=== PATIENT | male | born 1990 | race American Indian/Alaskan Native ===

== ENCOUNTER 2016-04-07 13:10 | Emergency (ER) | payer SELFPAY ==
[2016-04-07 13:54] VITALS: BP 120/75
--- NOTE | 2016-04-08 12:19 | ED Elopement Review ---
ED Pt Elopement review - Call Back decision Pt Call Back Decision: No action required
== END 2016-04-07 22:45 | disposition left against medical advice (07) ==
LOC: ED 13:10
DX: R10.9 Unspecified abdominal pain (principal); R11.2 Nausea with vomiting, unspecified; Z53.21 Procedure and treatment not carried out due to patient leaving prior to being seen by health care provider

== ENCOUNTER 2016-04-08 15:02 | Emergency (ER) | payer SELFPAY ==
--- NOTE | 2016-04-08 17:24 | Emergency Department Report ---
Chief Complaint: Nausea/Vomiting/Diarrhea Stated Complaint: VOMITTING BLOOD Time Seen by Provider: 04/08/16 17:15 - HPI History of Present Illness: 25-year-old male comes in for complaint of vomiting with streaks of blood. This started last night. Patient also complains of dysuria with incomplete of bladder drainage several years. He reports that he is driven from his penis after he urinates. Patient reports nausea no fever no chills - Exam Vital Signs: Vital Signs 04/08/16 15:13 Temperature 98.8 F Pulse Rate 79 Respiratory 18 Rate Blood Pressure 129/71 O2 Sat by Pulse 100 Oximetry Physical Exam: Is alert and oriented 3 no acute distress no pelvic tenderness cardiac regular rate and rhythm respiratory clear to auscultation MSE screening note: Focused history and physical exam performed. Due to findings the following was ordered: CBC BMP urinalysis ordered patient be evaluated the main ER ED Disposition for MSE Condition: Stable
[2016-04-08 18:01] LABS: Hematocrit 44.6 % (35.5-45.6); Hemoglobin 14.7 gm/dl (11.8-15.2); Mean Corpuscular HGB Conc 33 % (32-34); Mean Corpuscular Hemoglobin 32 pg (28-32); Mean Corpuscular Volume 98 fl (84-94); Platelet Count 219 K/mm3 (140-440); Red Blood Count 4.58 M/mm3 (3.65-5.03); Red Cell Distribution Width 13.1 % (13.2-15.2)
[2016-04-08 18:18] LABS: BUN/Creatinine Ratio 14.44; Blood Urea Nitrogen 13 mg/dL (9-20); Calcium 9.3 mg/dL (8.4-10.2); Carbon Dioxide 28 mmol/L (22-30); Chloride 103.7 mmol/L (98-107); Glucose 88 mg/dL (75-100); Potassium 4.6 mmol/L (3.6-5.0); Sodium 143 mmol/L (137-145)
[2016-04-08 18:26] LABS: Anion Gap 16 mmol/L
[2016-04-08 19:05] LABS: Bilirubin,Urine NEG (Negative); Blood,Urine NEG (Negative); Ketones,Urine NEG (Negative); Leukocyte Esterase,Urine NEG (Negative); Mucus,Urine 1+ /HPF; Nitrite,Urine NEG (Negative); Protein,Urine <15 mg/dL mg/dL (Negative); Urobilinogen,Urine < 2.0 mg/dL (<2.0)
[2016-04-08] MEDS ORDERED: ZOFRAN IV ONE (23:07)
[2016-04-08] MEDS ORDERED: MORPHINE IV ONE (23:07)
[2016-04-08] MEDS ORDERED: PEPCID IV ONE (23:08)
--- NOTE | 2016-04-08 23:20 | Emergency Department Report ---
HPI - General Chief Complaint: Nausea/Vomiting/Diarrhea Time Seen by Provider: 04/08/16 17:15 - HPI HPI: Room 7 The patient is a 25-year-old male presenting with a chief complaint of nausea vomiting and difficulty voiding. The patient states he's had difficulty urinating for several years. The patient states when he voids does not feel on all the urine comes out. The patient states he has never sought medical attention for this complaint. Patient states over the past 2-3 weeks it feels as though the symptoms has worsened. Patient currently denies feeling as though there is urine in his bladder. Patient denies penile discharge or dysuria. The patient states since yesterday he has had nausea and vomiting with small amount of blood present. Patient denies abdominal pain states she's felt nauseous for 1 week. Patient denies hematochezia or melena. Patient denies any history of fever. Location: Gastrointestinal system, genitourinary system Duration: [see above] Quality: Nausea Severity: Moderate Modifying factors: [see above] Context: [see above] Mode of transportation: [not driving] ED Past Medical Hx - Past Medical History Previous Medical History?: No - Surgical History Past Surgical History?: No - Family History Family history: no significant - Social History Smoking Status: Never Smoker Substance Use Type: None - Medications Home Medications: Home Medications Medication Instructions Recorded Confirmed Last Taken Type Promethazine [Phenergan TAB] 25 mg PO Q6HR PRN #20 tab 04/09/16 Unknown Rx Promethazine [Phenergan] 25 mg MT Q6HR PRN #5 supp.rect 04/09/16 Unknown Rx traMADol [Ultram] 50 mg PO Q6HR PRN #14 tablet 04/09/16 Unknown Rx ED Review of Systems ROS: Stated complaint: VOMITTING BLOOD Other details as noted in HPI Comment: All other systems reviewed and negative Constitutional: denies: chills, fever Eyes: denies: eye pain, eye discharge, vision change ENT: denies: ear pain, throat pain Respiratory: denies: cough, shortness of breath, wheezing Cardiovascular: denies: chest pain, palpitations Endocrine: no symptoms reported Gastrointestinal: abdominal pain, nausea, vomiting, hematemesis Genitourinary: denies: dysuria, hematuria, discharge Musculoskeletal: denies: back pain, joint swelling, arthralgia Skin: denies: rash, lesions Neurological: denies: headache, weakness, paresthesias Psychiatric: denies: anxiety, depression Hematological/Lymphatic: denies: easy bleeding, easy bruising Physical Exam - Physical Exam Vital Signs: Vital Signs 04/08/16 04/08/16 15:13 19:45 Temperature 98.8 F 98.6 F Pulse Rate 79 71 Respiratory 18 16 Rate Blood Pressure 129/71 Blood Pressure 126/78 [Left] O2 Sat by Pulse 100 100 Oximetry Physical Exam: GENERAL: The patient is well-developed well-nourished male lying on stretcher not appearing to be in acute distress. [] HEENT: Normocephalic. Atraumatic. Extraocular motions are intact. Patient has moist mucous membranes. NECK: Supple. Trachea midline CHEST/LUNGS: Clear to auscultation. There is no respiratory distress noted. HEART/CARDIOVASCULAR: Regular. There is no tachycardia. There is no gallop rub or murmur. ABDOMEN: Abdomen is soft, discomfort to palpation in epigastric, left upper quadrant and left lower quadrant. There is no suprapubic fullness. Patient has normal bowel sounds. There is no abdominal distention. SKIN: There is no rash. There is no edema. There is no diaphoresis. NEURO: The patient is awake, alert, and oriented. The patient is cooperative. The patient has normal speech MUSCULOSKELETAL: There is no evidence of acute injury. ED Course Vital Signs 04/08/16 04/08/16 15:13 19:45 Temperature 98.8 F 98.6 F Pulse Rate 79 71 Respiratory 18 16 Rate Blood Pressure 129/71 Blood Pressure 126/78 [Left] O2 Sat by Pulse 100 100 Oximetry ED Medical Decision Making - Lab Data Result diagrams: 04/08/16 17:33 04/08/16 17:33 Laboratory Tests 04/08/16 04/08/16 04/08/16 17:33 17:33 17:59 WBC 5.0 RBC 4.58 Hgb 14.7 Hct 44.6 MCV 98 H MCH 32 MCHC 33 RDW 13.1 L Plt Count 219 Sodium 143 Potassium 4.6 Chloride 103.7 Carbon Dioxide 28 Anion Gap 16 BUN 13 Creatinine 0.9 Estimated GFR > 60 BUN/Creatinine Ratio 14.44 Glucose 88 Calcium 9.3 Urine Color Yellow Urine Turbidity Clear Urine pH 5.0 Ur Specific Girard 1.025 Urine Protein <15 mg/dl Urine Glucose (UA) Neg Urine Ketones Neg Urine Blood Neg Urine Nitrite Neg Urine Bilirubin Neg Urine Urobilinogen < 2.0 Ur Leukocyte Esterase Neg Urine WBC (Auto) 1.0 Urine RBC (Auto) 1.0 U Epithel Cells (Auto) < 1.0 Urine Mucus 1+ - Radiology Data Radiology results: report reviewed (CT abdomen and pelvis), image reviewed (CT abdomen and pelvis) CT abdomen and pelvis (read by radiologist)-mild small bowel ileus is identified as described. No obstruction is seen. The appendix is normal. Slight distention of the urinary bladder. - Medical Decision Making I explained to the patient and visitor at bedside the importance of prompt follow-up with a urologist to discern the etiology of his urinary retention. I explained to them the possibility of increased morbidity and/or mortality should they not follow-up and his etiology goes undiagnosed. Patient verbalized understanding. - Differential Diagnosis prostatitis, BPH, bladder mass, gastritis, GERD Critical care attestation.: If time is entered above; I have spent that time in minutes in the direct care of this critically ill patient, excluding procedure time. ED Disposition Clinical Impression: Nausea & vomiting, Difficulty urinating, Urinary retention, Ileus Disposition: DISCHARGED TO HOME OR SELFCARE Is pt being admited?: No Does the pt Need Aspirin: No Condition: Stable Instructions: Urinary Retention in Men (ED), Benign Prostatic Hypertrophy (ED) , Prostate Cancer (GEN) Additional Instructions: Return to the emergency department immediately should you develop worsening symptoms, fever, inability to tolerate food or liquid or any other concerns. Prescriptions: Promethazine [Phenergan TAB] 25 mg PO Q6HR PRN #20 tab PRN Reason: Nausea Promethazine [Phenergan] 25 mg MT Q6HR PRN #5 supp.rect PRN Reason: Vomiting traMADol [Ultram] 50 mg PO Q6HR PRN #14 tablet PRN Reason: Pain Referrals: PRIMARY CARE, [Primary Care Provider] - 3-5 Days GILLES WOLF MD [Staff Physician] - [facility] (Dr. Wolf is a urologist. It is extremely important that you follow up with him as soon as possible for further evaluation of your urinary retention.) Time of Disposition: 00:28
[2016-04-08] MEDS ORDERED: NACL ONE (23:24)
--- NOTE | 2016-04-09 00:09 | Cat Scan Report ---
FINAL REPORT PROCEDURE: CT ABDOMEN PELVIS W CON TECHNIQUE: Computerized axial tomography of the abdomen and pelvis was performed after the IV injection of iodinated nonionic contrast. HISTORY: Lt Abd pain, hematemesis, incomplete voiding COMPARISON: No prior studies are available for comparison. FINDINGS: Visualized lower thorax: No significant abnormality. Liver: Normal size and attenuation. Spleen: Normal size and attenuation. Gallbladder and biliary system: Normal. Pancreas: Normal. Adrenals: Normal. Kidneys: Normal. GI tract: Stomach is normal. No evidence of intestinal obstruction. There are few loops of slightly dilated fluid-filled small bowel in the lower abdomen, ileus is suspected. The cecum, appendix and colon are normal.. Lymph nodes and mesentery: Normal. Vasculature: Normal. Bladder: The urinary bladder is slightly distended.. Reproductive organs: Normal. Peritoneum: No free fluid. Musculoskeletal structures: No significant abnormality. Other: None. IMPRESSION: Mild small bowel ileus is identified as described. No obstruction is seen. The appendix is normal. Slight distention of the urinary bladder.
[2016-04-09] MEDS ORDERED: REGLAN IV ONE (00:37)
[2016-04-09 02:51] VITALS: BP 110/58
== END 2016-04-09 01:13 | disposition home or self-care (01) ==
LOC: ED 15:02
DX: R11.2 Nausea with vomiting, unspecified (principal); R33.9 Retention of urine, unspecified; K56.7 Ileus, unspecified
CPT/HCPCS: 36415; 74177; 80048; 81001; 85027; 96374; 96375; 99284; J2270; J2405; J2765; Q9967

== ENCOUNTER 2019-05-31 11:07 | Emergency (ER) | payer OTHER ==
[2019-05-31] MEDS ORDERED: LORazepam 2 MG/ML VIAL IV ONE (11:56)
--- NOTE | 2019-05-31 12:06 | Emergency Department Report ---
<LEONOR HERNANDEZ - Last Filed: 05/31/19 17:31> ED Altered Mental Status HPI - General Chief Complaint: Altered Mental Status Stated Complaint: DRUG INTOXICATION Time Seen by Provider: 05/31/19 11:49 Source: patient, EMS Mode of arrival: Stretcher Limitations: Altered Mental Status - History of Present Illness Initial Comments: Patient is 28 years old male with no significant past medical history except for drug abuse. Patient brought to the emergency room via EMS for evaluation of altered mental status. EMS stated that patient found unresponsive with a Bethanie. They admitted that they has been using some drugs but somebody gave it to them. Patient given Narcan by EMS and immediately start working up. In the emergency room patient is crying and paranoid and stating that we are trying to kill him. Patient is very agitated. Patient given Ativan 2 mg IV for sedation. Patient is unable to answer any question at this moment. MD Complaint: altered mental status, intoxication -: This morning Severity: moderate Context: drug abuse Treatments Prior to Arrival: IV fluid - Related Data Previous Rx's Medication Instructions Recorded Last Taken Type Promethazine [Phenergan TAB] 25 mg PO Q6HR PRN #20 tab 04/09/16 Unknown Rx Promethazine [Phenergan] 25 mg HI Q6HR PRN #5 supp.rect 04/09/16 Unknown Rx Naloxone HCl [Narcan Nasal Petal] 4 mg NS Q1HR PRN #5 spray 05/31/19 Unknown Rx Potassium Chloride 20 meq PO BID #30 packet 05/31/19 Unknown Rx Allergies Allergy/AdvReac Type Severity Reaction Status Date / Time No Known Allergies Allergy Unverified 04/07/16 13:51 ED Review of Systems Comment: Unobtainable due to pts medical conditions ED Past Medical Hx - Past Medical History Previous Medical History?: No - Surgical History Past Surgical History?: No - Social History Smoking Status: Never Smoker - Medications Home Medications: Home Medications Medication Instructions Recorded Confirmed Last Taken Type Promethazine [Phenergan TAB] 25 mg PO Q6HR PRN #20 tab 04/09/16 Unknown Rx Promethazine [Phenergan] 25 mg HI Q6HR PRN #5 supp.rect 04/09/16 Unknown Rx Naloxone HCl [Narcan Nasal Petal] 4 mg NS Q1HR PRN #5 spray 03/05/20 Unknown Rx Potassium Chloride 20 meq PO BID #30 packet 05/31/19 Unknown Rx ED Physical Exam - General Limitations: Altered Mental Status General appearance: alert, appears intoxicated, anxious, other (agitated) - Head Head exam: Present: atraumatic, normal inspection - Eye Eye exam: Present: normal appearance, PERRL - ENT ENT exam: Present: normal exam, normal orophraynx, mucous membranes moist - Neck Neck exam: Present: normal inspection, full ROM. Absent: tenderness, meningismus - Respiratory Respiratory exam: Present: normal lung sounds bilaterally - Cardiovascular Cardiovascular Exam: Present: regular rate, normal rhythm, normal heart sounds - GI/Abdominal GI/Abdominal exam: Present: soft, normal bowel sounds. Absent: distended, tenderness, guarding, rebound, rigid, organomegaly, mass, bruit, pulsatile mass, hernia - Extremities Exam Extremities exam: Present: normal inspection, full ROM, normal capillary refill. Absent: pedal edema, calf tenderness - Back Exam Back exam: Present: normal inspection, full ROM. Absent: CVA tenderness (R), CVA tenderness (L) - Neurological Exam Neurological exam: Present: alert, oriented X3, CN II-XII intact, normal gait, reflexes normal. Absent: motor sensory deficit - Psychiatric Psychiatric exam: Present: normal mood - Skin Skin exam: Present: warm, intact, normal color - Lab Data Result diagrams: 05/31/19 12:12 05/31/19 12:12 - Medical Decision Making Patient is 28 years old male with no significant past medical history except for drug abuse. Patient brought to the emergency room via EMS for evaluation of altered mental status. EMS stated that patient found unresponsive with a Bethanie. They admitted that they has been using some drugs but somebody gave it to them. Patient given Narcan by EMS and immediately start working up. In the emergency room patient is crying and paranoid and stating that we are trying to kill him. Patient is very agitated. Patient given Ativan 2 mg IV for sedation. Patient is unable to answer any question at this moment. Labs reviewed and is unremarkable except for positive UDS for cocaine and methamphetamine. Patient still sedated. Psychiatric team has been consulted for possible inpatient rehab. Patient has been evaluated by me multiple times. Patient remain with stable vital signs. Waiting for psychiatric team reassessment and disposition. ED Disposition Clinical Impression: Polysubstance abuse, Hypokalemia Disposition: DC-01 TO HOME OR SELFCARE Condition: Stable Additional Instructions: Please avoid consumption of recreational drugs. Long-term complications of recreational drug consumption include , disability, paralysis, loss of qual ity of life, and addiction. Take the potassium supplementation as directed, use the Narcan spray for altered mental status, respiratory distress, confusion. If any of these symptoms develop, contact emergency medical services right away. Follow-up with your primary care doctor within the next 2 weeks. Laboratory studies demonstrated nonemergent incidental abnormalities which should be followed up by a primary care doctor. Please have your primary care doctor contact medical records department to obtain these laboratory studies and follow them up. In addition, cultures were sent today of the urine, and results will be available within the next 5 to 7 days. Have a primary care doctor contact the medical records department to obtain culture results. Return to the ER right away with new, worsened or different symptoms, or symptoms not present on the initial emergency room evaluation Referrals: [facility] [Provider Group] - 3-5 Days [facility] [Provider Group] - 3-5 Days <LIN DANIEL - Last Filed: 05/31/19 20:10> ED Review of Systems ROS: Stated complaint: DRUG INTOXICATION Other details as noted in HPI ED Course Vital Signs 05/31/19 05/31/19 05/31/19 11:24 12:34 12:46 Temperature 98.8 F Pulse Rate 80 Respiratory 16 Rate Blood Pressure 134/90 142/94 142/94 O2 Sat by Pulse 98 92 96 Oximetry 05/31/19 05/31/19 05/31/19 14:20 14:30 14:46 Temperature Pulse Rate Respiratory Rate Blood Pressure 108/70 109/79 119/68 O2 Sat by Pulse 100 100 100 Oximetry 05/31/19 05/31/19 05/31/19 15:00 15:09 15:16 Temperature Pulse Rate Respiratory 18 Rate Blood Pressure 113/65 109/65 O2 Sat by Pulse 99 100 100 Oximetry 05/31/19 05/31/19 05/31/19 15:30 15:45 16:00 Temperature Pulse Rate Respiratory Rate Blood Pressure 103/74 107/61 107/61 O2 Sat by Pulse 100 100 100 Oximetry 05/31/19 05/31/19 05/31/19 16:15 16:30 16:45 Temperature Pulse Rate Respiratory Rate Blood Pressure 108/67 108/67 115/72 O2 Sat by Pulse 99 99 100 Oximetry 05/31/19 05/31/19 05/31/19 17:00 17:15 17:30 Temperature Pulse Rate 59 L 70 75 Respiratory 14 16 16 Rate Blood Pressure 124/68 108/64 107/65 O2 Sat by Pulse 100 99 99 Oximetry 05/31/19 05/31/19 05/31/19 17:45 18:00 18:15 Temperature Pulse Rate 70 73 66 Respiratory 13 16 14 Rate Blood Pressure 107/64 107/68 111/71 O2 Sat by Pulse 99 99 100 Oximetry 05/31/19 05/31/19 05/31/19 18:30 18:45 19:00 Temperature Pulse Rate 95 H 71 70 Respiratory 13 13 17 Rate Blood Pressure 111/81 117/75 110/64 O2 Sat by Pulse 98 100 99 Oximetry - Reevaluation(s) Reevaluation #1: 05/31/19 20:05 Patient currently awake, alert, oriented, and clinically sober. He denies phy sical pain at this time. He was seen in conjunction with the psychiatric team. He has been in this department for hours without clinical decompensation. He was given outpatient resources by the psychiatric team. He will be discharged with Narcan, and potassium supplementation. He denies urinary symptoms. He can follow-up with a primary care doctor for this. Vital Signs 05/31/19 05/31/19 05/31/19 11:24 12:34 12:46 Temperature 98.8 F Pulse Rate 80 Respiratory 16 Rate Blood Pressure 134/90 142/94 142/94 O2 Sat by Pulse 98 92 96 Oximetry 05/31/19 05/31/19 05/31/19 14:20 14:30 14:46 Temperature Pulse Rate Respiratory Rate Blood Pressure 108/70 109/79 119/68 O2 Sat by Pulse 100 100 100 Oximetry 05/31/19 05/31/19 05/31/19 15:00 15:09 15:16 Temperature Pulse Rate Respiratory 18 Rate Blood Pressure 113/65 109/65 O2 Sat by Pulse 99 100 100 Oximetry 05/31/19 05/31/19 05/31/19 15:30 15:45 16:00 Temperature Pulse Rate Respiratory Rate Blood Pressure 103/74 107/61 107/61 O2 Sat by Pulse 100 100 100 Oximetry 05/31/19 05/31/19 05/31/19 16:15 16:30 16:45 Temperature Pulse Rate Respiratory Rate Blood Pressure 108/67 108/67 115/72 O2 Sat by Pulse 99 99 100 Oximetry 05/31/19 05/31/19 05/31/19 17:00 17:15 17:30 Temperature Pulse Rate 59 L 70 75 Respiratory 14 16 16 Rate Blood Pressure 124/68 108/64 107/65 O2 Sat by Pulse 100 99 99 Oximetry 05/31/19 05/31/19 05/31/19 17:45 18:00 18:15 Temperature Pulse Rate 70 73 66 Respiratory 13 16 14 Rate Blood Pressure 107/64 107/68 111/71 O2 Sat by Pulse 99 99 100 Oximetry 05/31/19 05/31/19 05/31/19 18:30 18:45 19:00 Temperature Pulse Rate 95 H 71 70 Respiratory 13 13 17 Rate Blood Pressure 111/81 117/75 110/64 O2 Sat by Pulse 98 100 99 Oximetry Lab Results 05/31/19 05/31/19 05/31/19 Range/Units 12:12 12:12 12:12 WBC (4.5-11.0) K/mm3 RBC (3.65-5.03) M/mm3 Hgb (11.8-15.2) gm/dl Hct (35.5-45.6) % MCV (84-94) fl MCH (28-32) pg MCHC (32-34) % RDW (13.2-15.2) % Plt Count (140-440) K/mm3 Lymph % (Auto) (13.4-35.0) % [place] % (Auto) (0.0-7.3) % Eos % (Auto) (0.0-4.3) % Baso % (Auto) (0.0-1.8) % Lymph # (1.2-5.4) K/mm3 [place] # (0.0-0.8) K/mm3 Eos # (0.0-0.4) K/mm3 Baso # (0.0-0.1) K/mm3 Seg Neutrophils % (40.0-70.0) % Seg Neutrophils # (1.8-7.7) K/mm3 Sodium 142 (137-145) mmol/L Potassium 3.1 L (3.6-5.0) mmol/L Chloride 104.6 (98-107) mmol/L Carbon Dioxide 19 L (22-30) mmol/L Anion Gap 22 mmol/L BUN 11 (9-20) mg/dL Creatinine 1.0 (0.8-1.5) mg/dL Estimated GFR > 60 ml/min BUN/Creatinine Ratio 11 % Glucose 106 H (75-100) mg/dL Calcium 8.7 (8.4-10.2) mg/dL Urine Color (Yellow) Urine Turbidity (Clear) Urine pH (5.0-7.0) Ur Specific [place] (1.003-1.030) Urine Protein (Negative) mg/dL Urine Glucose (UA) (Negative) mg/dL Urine Ketones (Negative) mg/dL Urine Blood (Negative) Urine Nitrite (Negative) Urine Bilirubin (Negative) Urine Urobilinogen (<2.0) mg/dL Ur Leukocyte Esterase (Negative) Urine WBC (Auto) (0.0-6.0) /HPF Urine RBC (Auto) (0.0-6.0) /HPF Urine Mucus /HPF Salicylates < 0.3 L (2.8-20.0) mg/dL Urine Opiates Screen Urine Methadone Screen Acetaminophen < 5.0 L (10.0-30.0) ug/mL Ur Barbiturates Screen Ur Phencyclidine Scrn Ur Amphetamines Screen U Benzodiazepines Scrn Urine Cocaine Screen U Marijuana (THC) Screen Drugs of Abuse Note Plasma/Serum Alcohol (0-0.07) % 05/31/19 05/31/19 05/31/19 Range/Units 12:12 12:12 14:20 WBC 4.5 (4.5-11.0) K/mm3 RBC 4.18 (3.65-5.03) M/mm3 Hgb 13.4 (11.8-15.2) gm/dl Hct 39.7 (35.5-45.6) % MCV 95 H (84-94) fl MCH 32 (28-32) pg MCHC 34 (32-34) % RDW 13.0 L (13.2-15.2) % Plt Count 213 (140-440) K/mm3 Lymph % (Auto) 31.6 (13.4-35.0) % [place] % (Auto) 7.5 H (0.0-7.3) % Eos % (Auto) 1.8 (0.0-4.3) % Baso % (Auto) 0.4 (0.0-1.8) % Lymph # 1.4 (1.2-5.4) K/mm3 [place] # 0.3 (0.0-0.8) K/mm3 Eos # 0.1 (0.0-0.4) K/mm3 Baso # 0.0 (0.0-0.1) K/mm3 Seg Neutrophils % 58.7 (40.0-70.0) % Seg Neutrophils # 2.7 (1.8-7.7) K/mm3 Sodium (137-145) mmol/L Potassium (3.6-5.0) mmol/L Chloride (98-107) mmol/L Carbon Dioxide (22-30) mmol/L Anion Gap mmol/L BUN (9-20) mg/dL Creatinine (0.8-1.5) mg/dL Estimated GFR ml/min BUN/Creatinine Ratio % Glucose (75-100) mg/dL Calcium (8.4-10.2) mg/dL Urine Color Yellow (Yellow) Urine Turbidity Clear (Clear) Urine pH 7.0 (5.0-7.0) Ur Specific [place] 1.018 (1.003-1.030) Urine Protein <15 mg/dl (Negative) mg/dL Urine Glucose (UA) Neg (Negative) mg/dL Urine Ketones Neg (Negative) mg/dL Urine Blood Neg (Negative) Urine Nitrite Neg (Negative) Urine Bilirubin Neg (Negative) Urine Urobilinogen 2.0 (<2.0) mg/dL Ur Leukocyte Esterase Tr (Negative) Urine WBC (Auto) 20.0 H (0.0-6.0) /HPF Urine RBC (Auto) 4.0 (0.0-6.0) /HPF Urine Mucus 2+ /HPF Salicylates (2.8-20.0) mg/dL Urine Opiates Screen Urine Methadone Screen Acetaminophen (10.0-30.0) ug/mL Ur Barbiturates Screen Ur Phencyclidine Scrn Ur Amphetamines Screen U Benzodiazepines Scrn Urine Cocaine Screen U Marijuana (THC) Screen Drugs of Abuse Note Plasma/Serum Alcohol < 0.01 (0-0.07) % 05/31/19 Range/Units 14:20 WBC (4.5-11.0) K/mm3 RBC (3.65-5.03) M/mm3 Hgb (11.8-15.2) gm/dl Hct (35.5-45.6) % MCV (84-94) fl MCH (28-32) pg MCHC (32-34) % RDW (13.2-15.2) % Plt Count (140-440) K/mm3 Lymph % (Auto) (13.4-35.0) % [place] % (Auto) (0.0-7.3) % Eos % (Auto) (0.0-4.3) % Baso % (Auto) (0.0-1.8) % Lymph # (1.2-5.4) K/mm3 [place] # (0.0-0.8) K/mm3 Eos # (0.0-0.4) K/mm3 Baso # (0.0-0.1) K/mm3 Seg Neutrophils % (40.0-70.0) % Seg Neutrophils # (1.8-7.7) K/mm3 Sodium (137-145) mmol/L Potassium (3.6-5.0) mmol/L Chloride (98-107) mmol/L Carbon Dioxide (22-30) mmol/L Anion Gap mmol/L BUN (9-20) mg/dL Creatinine (0.8-1.5) mg/dL Estimated GFR ml/min BUN/Creatinine Ratio % Glucose (75-100) mg/dL Calcium (8.4-10.2) mg/dL Urine Color (Yellow) Urine Turbidity (Clear) Urine pH (5.0-7.0) Ur Specific [place] (1.003-1.030) Urine Protein (Negative) mg/dL Urine Glucose (UA) (Negative) mg/dL Urine Ketones (Negative) mg/dL Urine Blood (Negative) Urine Nitrite (Negative) Urine Bilirubin (Negative) Urine Urobilinogen (<2.0) mg/dL Ur Leukocyte Esterase (Negative) Urine WBC (Auto) (0.0-6.0) /HPF Urine RBC (Auto) (0.0-6.0) /HPF Urine Mucus /HPF Salicylates (2.8-20.0) mg/dL Urine Opiates Screen Presumptive negative Urine Methadone Screen Presumptive negative Acetaminophen (10.0-30.0) ug/mL Ur Barbiturates Screen Presumptive negative Ur Phencyclidine Scrn Presumptive negative Ur Amphetamines Screen Presumptive positive U Benzodiazepines Scrn Presumptive negative Urine Cocaine Screen Presumptive positive U Marijuana (THC) Screen Presumptive positive Drugs of Abuse Note Disclamer Plasma/Serum Alcohol (0-0.07) % - Lab Data Result diagrams: 05/31/19 12:12 05/31/19 12:12 Lab Results 05/31/19 05/31/19 05/31/19 Range/Units 12:12 12:12 12:12 WBC (4.5-11.0) K/mm3 RBC (3.65-5.03) M/mm3 Hgb (11.8-15.2) gm/dl Hct (35.5-45.6) % MCV (84-94) fl MCH (28-32) pg MCHC (32-34) % RDW (13.2-15.2) % Plt Count (140-440) K/mm3 Lymph % (Auto) (13.4-35.0) % [place] % (Auto) (0.0-7.3) % Eos % (Auto) (0.0-4.3) % Baso % (Auto) (0.0-1.8) % Lymph # (1.2-5.4) K/mm3 [place] # (0.0-0.8) K/mm3 Eos # (0.0-0.4) K/mm3 Baso # (0.0-0.1) K/mm3 Seg Neutrophils % (40.0-70.0) % Seg Neutrophils # (1.8-7.7) K/mm3 Sodium 142 (137-145) mmol/L Potassium 3.1 L (3.6-5.0) mmol/L Chloride 104.6 (98-107) mmol/L Carbon Dioxide 19 L (22-30) mmol/L Anion Gap 22 mmol/L BUN 11 (9-20) mg/dL Creatinine 1.0 (0.8-1.5) mg/dL Estimated GFR > 60 ml/min BUN/Creatinine Ratio 11 % Glucose 106 H (75-100) mg/dL Calcium 8.7 (8.4-10.2) mg/dL Urine Color (Yellow) Urine Turbidity (Clear) Urine pH (5.0-7.0) Ur Specific [place] (1.003-1.030) Urine Protein (Negative) mg/dL Urine Glucose (UA) (Negative) mg/dL Urine Ketones (Negative) mg/dL Urine Blood (Negative) Urine Nitrite (Negative) Urine Bilirubin (Negative) Urine Urobilinogen (<2.0) mg/dL Ur Leukocyte Esterase (Negative) Urine WBC (Auto) (0.0-6.0) /HPF Urine RBC (Auto) (0.0-6.0) /HPF Urine Mucus /HPF Salicylates < 0.3 L (2.8-20.0) mg/dL Urine Opiates Screen Urine Methadone Screen Acetaminophen < 5.0 L (10.0-30.0) ug/mL Ur Barbiturates Screen Ur Phencyclidine Scrn Ur Amphetamines Screen U Benzodiazepines Scrn Urine Cocaine Screen U Marijuana (THC) Screen Drugs of Abuse Note Plasma/Serum Alcohol (0-0.07) % 05/31/19 05/31/19 05/31/19 Range/Units 12:12 12:12 14:20 WBC 4.5 (4.5-11.0) K/mm3 RBC 4.18 (3.65-5.03) M/mm3 Hgb 13.4 (11.8-15.2) gm/dl Hct 39.7 (35.5-45.6) % MCV 95 H (84-94) fl MCH 32 (28-32) pg MCHC 34 (32-34) % RDW 13.0 L (13.2-15.2) % Plt Count 213 (140-440) K/mm3 Lymph % (Auto) 31.6 (13.4-35.0) % [place] % (Auto) 7.5 H (0.0-7.3) % Eos % (Auto) 1.8 (0.0-4.3) % Baso % (Auto) 0.4 (0.0-1.8) % Lymph # 1.4 (1.2-5.4) K/mm3 [place] # 0.3 (0.0-0.8) K/mm3 Eos # 0.1 (0.0-0.4) K/mm3 Baso # 0.0 (0.0-0.1) K/mm3 Seg Neutrophils % 58.7 (40.0-70.0) % Seg Neutrophils # 2.7 (1.8-7.7) K/mm3 Sodium (137-145) mmol/L Potassium (3.6-5.0) mmol/L Chloride (98-107) mmol/L Carbon Dioxide (22-30) mmol/L Anion Gap mmol/L BUN (9-20) mg/dL Creatinine (0.8-1.5) mg/dL Estimated GFR ml/min BUN/Creatinine Ratio % Glucose (75-100) mg/dL Calcium (8.4-10.2) mg/dL Urine Color Yellow (Yellow) Urine Turbidity Clear (Clear) Urine pH 7.0 (5.0-7.0) Ur Specific [place] 1.018 (1.003-1.030) Urine Protein <15 mg/dl (Negative) mg/dL Urine Glucose (UA) Neg (Negative) mg/dL Urine Ketones Neg (Negative) mg/dL Urine Blood Neg (Negative) Urine Nitrite Neg (Negative) Urine Bilirubin Neg (Negative) Urine Urobilinogen 2.0 (<2.0) mg/dL Ur Leukocyte Esterase Tr (Negative) Urine WBC (Auto) 20.0 H (0.0-6.0) /HPF Urine RBC (Auto) 4.0 (0.0-6.0) /HPF Urine Mucus 2+ /HPF Salicylates (2.8-20.0) mg/dL Urine Opiates Screen Urine Methadone Screen Acetaminophen (10.0-30.0) ug/mL Ur Barbiturates Screen Ur Phencyclidine Scrn Ur Amphetamines Screen U Benzodiazepines Scrn Urine Cocaine Screen U Marijuana (THC) Screen Drugs of Abuse Note Plasma/Serum Alcohol < 0.01 (0-0.07) % 05/31/19 Range/Units 14:20 WBC (4.5-11.0) K/mm3 RBC (3.65-5.03) M/mm3 Hgb (11.8-15.2) gm/dl Hct (35.5-45.6) % MCV (84-94) fl MCH (28-32) pg MCHC (32-34) % RDW (13.2-15.2) % Plt Count (140-440) K/mm3 Lymph % (Auto) (13.4-35.0) % [place] % (Auto) (0.0-7.3) % Eos % (Auto) (0.0-4.3) % Baso % (Auto) (0.0-1.8) % Lymph # (1.2-5.4) K/mm3 [place] # (0.0-0.8) K/mm3 Eos # (0.0-0.4) K/mm3 Baso # (0.0-0.1) K/mm3 Seg Neutrophils % (40.0-70.0) % Seg Neutrophils # (1.8-7.7) K/mm3 Sodium (137-145) mmol/L Potassium (3.6-5.0) mmol/L Chloride (98-107) mmol/L Carbon Dioxide (22-30) mmol/L Anion Gap mmol/L BUN (9-20) mg/dL Creatinine (0.8-1.5) mg/dL Estimated GFR ml/min BUN/Creatinine Ratio % Glucose (75-100) mg/dL Calcium (8.4-10.2) mg/dL Urine Color (Yellow) Urine Turbidity (Clear) Urine pH (5.0-7.0) Ur Specific [place] (1.003-1.030) Urine Protein (Negative) mg/dL Urine Glucose (UA) (Negative) mg/dL Urine Ketones (Negative) mg/dL Urine Blood (Negative) Urine Nitrite (Negative) Urine Bilirubin (Negative) Urine Urobilinogen (<2.0) mg/dL Ur Leukocyte Esterase (Negative) Urine WBC (Auto) (0.0-6.0) /HPF Urine RBC (Auto) (0.0-6.0) /HPF Urine Mucus /HPF Salicylates (2.8-20.0) mg/dL Urine Opiates Screen Presumptive negative Urine Methadone Screen Presumptive negative Acetaminophen (10.0-30.0) ug/mL Ur Barbiturates Screen Presumptive negative Ur Phencyclidine Scrn Presumptive negative Ur Amphetamines Screen Presumptive positive U Benzodiazepines Scrn Presumptive negative Urine Cocaine Screen Presumptive positive U Marijuana (THC) Screen Presumptive positive Drugs of Abuse Note Disclamer Plasma/Serum Alcohol (0-0.07) % Critical care attestation.: If time is entered above; I have spent that time in minutes in the direct care of this critically ill patient, excluding procedure time. ED Disposition Is pt being admited?: No Does the pt Need Aspirin: No
[2019-05-31] MEDS ORDERED: ONDANSETRON 4 MG/2 ML INJ IV ONE (12:18)
[2019-05-31 12:42] LABS: Basophils % (Auto) 0.4 % (0.0-1.8); Eosinophils # (Auto) 0.1 K/mm3 (0.0-0.4); Eosinophils % (Auto) 1.8 % (0.0-4.3); Hematocrit 39.7 % (35.5-45.6); Hemoglobin 13.4 gm/dl (11.8-15.2); Lymphocytes # (Auto) 1.4 K/mm3 (1.2-5.4); Lymphocytes % (Auto) 31.6 % (13.4-35.0); Mean Corpuscular HGB Conc 34 % (32-34); Mean Corpuscular Volume 95 fl (84-94); Monocytes # (Auto) 0.3 K/mm3 (0.0-0.8); Monocytes % (Auto) 7.5 % (0.0-7.3); Platelet Count 213 K/mm3 (140-440); Red Blood Count 4.18 M/mm3 (3.65-5.03)
[2019-05-31 13:01] LABS: BUN/Creatinine Ratio 11; Blood Urea Nitrogen 11 mg/dL (9-20); Calcium 8.7 mg/dL (8.4-10.2); Hemolysis Index 4
[2019-05-31 14:32] LABS: Bilirubin,Urine NEG (Negative); Blood,Urine NEG (Negative); Color,Urine Yellow (Yellow); Mucus,Urine 2+ /HPF; Protein,Urine <15 mg/dL mg/dL (Negative)
[2019-05-31 14:37] LABS: Benzodiazepines Screen,Urine PRESUMPTIVE NEGATIVE; Methadone Screen,Urine PRESUMPTIVE NEGATIVE; Opiate Screen,Urine PRESUMPTIVE NEGATIVE
[2019-05-31 14:51] LABS: Amphetamine Screen,Urine PRESUMPTIVE POSITIVE; Cannabinoid Screen,Urine PRESUMPTIVE POSITIVE; Cocaine Screen,Urine PRESUMPTIVE POSITIVE
[2019-05-31 19:04] VITALS: BP 110/64
[2019-05-31] MEDS ORDERED: POTASSIUM CHLORIDE ER 20 MEQ TAB PO ONE (20:05)
== END 2019-05-31 20:15 | disposition home or self-care (01) ==
LOC: ED 11:07
DX: F19.10 Other psychoactive substance abuse, uncomplicated (principal); E87.6 Hypokalemia; Z79.899 Other long term (current) drug therapy
CPT/HCPCS: 36415; 80048; 80307; 81001; 85025; 87086; 96374; 96375; 99284; J2060; J2405; 80320; G0480

== ENCOUNTER 2019-12-05 05:59 | Emergency (ER) | payer OTHER ==
[2019-12-05 06:15] VITALS: BP 122/80
--- NOTE | 2019-12-05 07:03 | XRay Report ---
HISTORY:injury COMPARISON: None. TECHNIQUE: AP lateral and obliques views were obtained FINDINGS: Bones: No fracture or dislocation. Joint spaces: Maintained. Soft tissues: No significant abnormality. Additional findings: None. IMPRESSION: 1. No significant abnormality. Signer Name: Andrea Schafer MD Signed: 12/05/2019 6:58 AM Workstation Name: [id number]
--- NOTE | 2019-12-05 08:00 | Emergency Department Report ---
ED Upper Extremity Inj HPI - General Chief Complaint: Extremity Injury, Upper Stated Complaint: RIGHT HAND PAIN Time Seen by Provider: 12/05/19 07:53 Source: patient Mode of arrival: Ambulatory Limitations: No Limitations - History of Present Illness Initial Comments: 29-year-old -Sur[place]ames[place] male presents to the emergency room complaining of right hand pain 10 out of 10. Patient reports he hit a wall. Trying to avoid hitting someone else patient states this happened about 5:30 AM today patient has no past medical history. - Related Data Previous Rx's Medication Instructions Recorded Last Taken Type Promethazine [Phenergan TAB] 25 mg PO Q6HR PRN #20 tab 04/09/16 Unknown Rx Promethazine [Phenergan] 25 mg OR Q6HR PRN #5 supp.rect 04/09/16 Unknown Rx Naloxone HCl [Narcan Nasal Scott] 4 mg NS Q1HR PRN #5 spray 05/31/19 Unknown Rx Potassium Chloride 20 meq PO BID #30 packet 05/31/19 Unknown Rx Ibuprofen [Motrin 600 MG tab] 600 mg PO Q8H PRN 7 Days #21 tablet 12/05/19 Unknown Rx Allergies Allergy/AdvReac Type Severity Reaction Status Date / Time No Known Allergies Allergy Unverified 04/07/16 13:51 ED Review of Systems ROS: Stated complaint: RIGHT HAND PAIN Other details as noted in HPI Comment: All other systems reviewed and negative ED Past Medical Hx - Past Medical History Previous Medical History?: No - Surgical History Past Surgical History?: No - Social History Smoking Status: Never Smoker Substance Use Type: None - Medications Home Medications: Home Medications Medication Instructions Recorded Confirmed Last Taken Type Promethazine [Phenergan TAB] 25 mg PO Q6HR PRN #20 tab 04/09/16 Unknown Rx Promethazine [Phenergan] 25 mg OR Q6HR PRN #5 supp.rect 04/09/16 Unknown Rx Naloxone HCl [Narcan Nasal Scott] 4 mg NS Q1HR PRN #5 spray 05/31/19 Unknown Rx Potassium Chloride 20 meq PO BID #30 packet 05/31/19 Unknown Rx Ibuprofen [Motrin 600 MG tab] 600 mg PO Q8H PRN 7 Days #21 tablet 12/05/19 Unknown Rx ED Physical Exam - General Limitations: No Limitations General appearance: alert, in no apparent distress - Head Head exam: Present: atraumatic, normocephalic - Eye Eye exam: Present: normal appearance - ENT ENT exam: Present: mucous membranes moist - Expanded Upper Extremity Exam Right Shoulder Exam: Present: normal inspection, full ROM Upper Arm exam: Present: normal inspection, full ROM Elbow exam: Present: normal inspection, full ROM Forearm Wrist exam: Present: full ROM, tenderness Hand Wrist exam: Present: normal inspection, full ROM, tenderness, swelling - Neurological Exam Neurological exam: Present: alert, oriented X3, normal gait - Psychiatric Psychiatric exam: Present: normal affect, normal mood - Skin Skin exam: Present: warm, dry, intact, normal color. Absent: rash ED Course Vital Signs 12/05/19 06:14 Temperature 98.2 F Pulse Rate 102 H Respiratory 20 Rate Blood Pressure 122/80 O2 Sat by Pulse 98 Oximetry ED Medical Decision Making - Radiology Data Radiology results: report reviewed Referring Physician:KARTHIKEYAN AMBROSEPatient Name:NIKI GONGORAPatient ID:[id number] of :[id number]:MaleAccession:[id number] Date:[id number] Status:Finalized Findings [facility] [address] [place] [address] XRay Report Signed Patient: NIKI GONGORA MR#: [id number] : 1990 Acct:[id number] Age/Sex: 29 / M ADM Date: 12/05/19 Loc: ED Attending Dr: Ordering Physician: KARHTIKEYAN AMBROSE MD Date of Service: 12/05/19 Procedure(s): XR hand 3+V RT Accession Number(s): [id number] cc: ED MD HALIE Fluoro Time In Minutes: HISTORY:injury COMPARISON: None. TECHNIQUE: AP lateral and obliques views were obtained FINDINGS: Bones: No fracture or dislocation. Joint spaces: Maintained. Soft tissues: No significant abnormality. Additional findings: None. IMPRESSION: 1. No significant abnormality. Signer Name: Andrea Schafer MD Signed: 12/05/2019 6:58 AM Workstation Name: [id number] Transcribed By: SHAY Dictated By: Andrea Schafer MD Electronically Authenticated By: Andrea Schafer MD Signed Date/Time: 12/05/19657 DD/ 6 TD/TT: - Medical Decision Making 29-year-old -[place] male presents to the emergency room complaining of right hand pain 10 out of 10. Patient reports he hit a wall. Trying to avoid hitting someone else patient states this happened about 5:30 AM today patient has no past medical history. X-ray is negative for any acute findings. Patient was given ibuprofen 600 mg for pain management. Patient be discharged home with a referral to Dr. Mccloud a prescription for ibuprofen. Critical care attestation.: If time is entered above; I have spent that time in minutes in the direct care of this critically ill patient, excluding procedure time. ED Disposition Clinical Impression: Contusion of hand including fingers Qualifiers: Encounter type: initial encounter Laterality: right Qualified Code(s): S60.221A - Contusion of right hand, initial encounter; S60.00XA - Contusion of unspecified finger without damage to nail, initial encounter Disposition: TO HOME OR SELFCARE Is pt being admited?: No Does the pt Need Aspirin: No Condition: Stable Instructions: Hand Sprain (ED), Wrist Injury (ED) Additional Instructions: X-ray is negative for any fracture. You have a hand contusion and a sprain. I recommend ice ibuprofen and elevate. Wear your splint for comfort do not wear it all the time as your hand will become stiff. Follow-up with an orthopedic provider if you have any further concerns I have listed 1 below for your convenience Prescriptions: Ibuprofen [Motrin 600 MG tab] 600 mg PO Q8H PRN 7 Days #21 tablet PRN Reason: Pain , Severe (7-10) Referrals: PRIMARY MD LEMUEL [Primary Care Provider] - 3-5 Days MEDINA MCCLOUD MD [Staff Physician] - 3-5 Days Forms: Work/School Release Form(ED)
[2019-12-05] MEDS ORDERED: IBUPROFEN 600 MG TAB PO ONE (08:01)
== END 2019-12-05 08:11 | disposition home or self-care (01) ==
LOC: ED 05:59
DX: S60.221A Contusion of right hand, initial encounter (principal); S60.00XA Contusion of unspecified finger without damage to nail, initial encounter; Z79.899 Other long term (current) drug therapy; W22.8XXA Striking against or struck by other objects, initial encounter; Y93.89 Activity, other specified; Y92.89 Other specified places as the place of occurrence of the external cause; Y99.8 Other external cause status